=== PATIENT | female | born 1950 | race Two or more races ===

== ENCOUNTER 2024-08-25 10:25 | Emergency (ER) | payer OTHER ==
[~2024-08-25] VITALS: Ht 157.5 cm; Wt 54.4 kg
[2024-08-25] MEDS ORDERED: SYNTHROID100 MCG (10:37)
[2024-08-25] MEDS ORDERED: METHYLPREDNISOLONE SOD SUCC 125 MG VIAL IV ONE (11:30)
[2024-08-25] MEDS ORDERED: FAMOtidine 10 MG/ML (4ML VIAL) IV ONE (11:30)
[2024-08-25] MEDS ORDERED: BENZONATATE 200 MG CAPSULE PO ONE (11:30)
[2024-08-25] MEDS ORDERED: LEVALBUTEROL HCL 1.25 MG/3 ML SOLUTION IH ONE ×2 (11:30→12:41)
[2024-08-25] MEDS ORDERED: CEFTRIAXONE SODIUM 1,000 MG VIAL IV ONE (11:30)
[2024-08-25] MEDS ORDERED: CEFTRIAXONE SODIUM 1,000 MG VIAL ONE (11:59)
[2024-08-25] MEDS ORDERED: FAMOTIDINE/PF 20 MG/2 ML VIAL ONE (11:59)
[2024-08-25] MEDS ORDERED: METHYLPREDNISOLONE SOD SUCC 125 MG VIAL ONE (11:59)
[2024-08-25 12:35] LABS: HEMATOCRIT 39.8 % (36.0-45.00); HEMOGLOBIN 13.1 g/dL (12.0-15.00); MEAN CELL VOLUME 91.2 fL (80.00-100.00); MEAN CORPUSCULAR HEMOGLOBIN 30.1 pg (27.00-32.0); PLATELET COUNT 305 K/uL (150-450); RED BLOOD COUNT 4.36 M/uL (4.00-6.00)
[2024-08-25] MEDS ORDERED: BENZONATATE200 M1 PO (13:16)
[2024-08-25] MEDS ORDERED: MEDROLPACK PO (13:16)
[2024-08-25] MEDS ORDERED: OSEL75CA PO (13:16)
[2024-08-25] MEDS ORDERED: PEPCID AC20 MG PO (13:16)
== END 2024-08-25 13:25 | disposition home or self-care (01) ==
LOC: ER 10:26 → EDBD 11:04 → ER 11:04
PROVIDERS: General Practice
DX: J04.0 Acute laryngitis (principal); J11.1 Influenza due to unidentified influenza virus with other respiratory manifestations; R50.9 Fever, unspecified; E03.8 Other specified hypothyroidism; Z20.822 Contact with and (suspected) exposure to COVID-19
CPT/HCPCS: 36415; 71046; 72100; 72170; 94640; 96365; 99283; J0696; J3490 ×2